=== PATIENT | male | born 1935 | race Caucasian/White ===

== ENCOUNTER → 2016-12-06 | Outpatient (REF) | payer MEDICARE, MEDICAID | LOC: M SFHCPLAZ 17:04 | PROVIDERS: ATTEND Dermatology | DX: L81.4 Other melanin hyperpigmentation (principal) ==

== ENCOUNTER → 2017-05-31 | Outpatient (REF) | payer MEDICARE, MEDICAID | LOC: M LAB REF 13:00 | PROVIDERS: ATTEND Internal Medicine | DX: M10.9 Gout, unspecified (principal) ==

== ENCOUNTER 2017-12-21 07:28 | Day surgery (SDC) | payer MEDICARE, MEDICAID ==
[~2017-12-21 07:28] MED LIST: BALANCED SALT IRRIGATION SOLUTION 500ML BAG (FOR OR EYE MACHINE) As Ordered; DUOVISC (0.50ML VISCOAT/0.55ML PROVISC) OPHTH KIT As Ordered; LIDOCAINE 0.75%/EPINEPHRINE 0.025% IN BSS 1ML SYR INTRACAMERAL (OR ONLY) As Ordered; POVIDONE-IODINE 5% OPHTH PREP SOL 30ML As Ordered
[2017-12-21] MEDS ORDERED: LIDOCAINE 1% MDV 20ML VIAL SQ (07:45)
[2017-12-21] MEDS: PROPARACAINE 0.5% OPHTH SOL 15ML OS (08:00)
[2017-12-21] MEDS: PHENYLEPHRINE 2.5% OPHTH SOL 2ML OS (08:05)
[2017-12-21] MEDS: TROPICAMIDE 1% OPHTH SOLN 2ML OS (08:10)
[2017-12-21] MEDS: OFLOXACIN 0.3 % (OCUFLOX) OPTH SOL 5ML OS (08:15)
[2017-12-21 08:36] LABS: BEDSIDE GLUCOSE 116 MG/DL (83-110)
[2017-12-21] MEDS ORDERED: fentaNYL 100 MCG/2 ML INJECTION (J3010) As Ordered (09:00)
[2017-12-21] MEDS ORDERED: MIDAZOLAM INJ 2 MG/2 ML VIAL (J2250) As Ordered (09:00)
[2017-12-21] MEDS ORDERED: ONDANSETRON 4MG/2ML VIAL (J2405) IV (10:00)
== END 2017-12-21 10:33 | disposition home or self-care (01) ==
LOC: M SDC 07:28
DX: H25.12 Age-related nuclear cataract, left eye (principal); H57.03 Miosis; R94.31 Abnormal electrocardiogram [ECG] [EKG]; I48.0 Paroxysmal atrial fibrillation; E78.5 Hyperlipidemia, unspecified; I51.7 Cardiomegaly; E11.9 Type 2 diabetes mellitus without complications; M10.9 Gout, unspecified; K21.9 Gastro-esophageal reflux disease without esophagitis; Z88.0 Allergy status to penicillin; Z79.899 Other long term (current) drug therapy; Z79.01 Long term (current) use of anticoagulants; Z87.891 Personal history of nicotine dependence
CPT/HCPCS: 66982

== ENCOUNTER 2017-12-28 09:29 | Day surgery (SDC) | payer MEDICARE, MEDICAID ==
[2017-12-28] MEDS: CEFUROXIME 1MG/0.1ML INTRACAMERAL INJ As Ordered (06:50)
[2017-12-28] MEDS: PROPARACAINE 0.5% OPHTH SOL 15ML OD (09:55)
[2017-12-28] MEDS: OFLOXACIN 0.3 % (OCUFLOX) OPTH SOL 5ML OD (09:55)
[2017-12-28] MEDS: TROPICAMIDE 1% OPHTH SOLN 2ML OD (10:00)
[2017-12-28] MEDS: PHENYLEPHRINE 2.5% OPHTH SOL 2ML OD (10:00)
[2017-12-28 10:15] LABS: BEDSIDE GLUCOSE 98 MG/DL (83-110)
[2017-12-28] MEDS ORDERED: fentaNYL 100 MCG/2 ML INJECTION (J3010) As Ordered (10:35)
[2017-12-28] MEDS ORDERED: MIDAZOLAM INJ 2 MG/2 ML VIAL (J2250) As Ordered (10:35)
[2017-12-28] MEDS: POVIDONE-IODINE 5% OPHTH PREP SOL 30ML As Ordered (11:00)
[2017-12-28] MEDS: BALANCED SALT IRRIGATION SOLUTION 500ML BAG (FOR OR EYE MACHINE) As Ordered (11:05)
[2017-12-28] MEDS: DUOVISC (0.50ML VISCOAT/0.55ML PROVISC) OPHTH KIT As Ordered (11:05)
[2017-12-28] MEDS: LIDOCAINE 0.75%/EPINEPHRINE 0.025% IN BSS 1ML SYR INTRACAMERAL (OR ONLY) As Ordered (11:06)
== END 2017-12-28 11:55 | disposition home or self-care (01) ==
LOC: M SDC 09:29
DX: H25.11 Age-related nuclear cataract, right eye (principal); H57.03 Miosis; E78.00 Pure hypercholesterolemia, unspecified; E78.5 Hyperlipidemia, unspecified; R94.31 Abnormal electrocardiogram [ECG] [EKG]; I48.0 Paroxysmal atrial fibrillation; E11.9 Type 2 diabetes mellitus without complications; M10.9 Gout, unspecified; K21.9 Gastro-esophageal reflux disease without esophagitis; I51.7 Cardiomegaly; Z88.0 Allergy status to penicillin; Z79.899 Other long term (current) drug therapy; Z79.01 Long term (current) use of anticoagulants
CPT/HCPCS: 66982

== ENCOUNTER → 2018-06-06 | Outpatient (REF) | payer MEDICARE, MEDICAID ==
[2018-06-07 14:04] LABS: FOLATE 21.2 NG/ML
== END ==
LOC: M LAB REF 12:55
DX: G60.9 Hereditary and idiopathic neuropathy, unspecified (principal)
CPT/HCPCS: 82746

== ENCOUNTER → 2020-06-26 | Outpatient (REF) | payer MEDICARE, MEDICAID ==
[~2020-06-26] MED LIST changes: -BALANCED SALT IRRIGATION SOLUTION 500ML BAG (FOR OR EYE MACHINE) As Ordered; +COLC1CAP PO; +DILT180C28 PO; -DUOVISC (0.50ML VISCOAT/0.55ML PROVISC) OPHTH KIT As Ordered; -LIDOCAINE 0.75%/EPINEPHRINE 0.025% IN BSS 1ML SYR INTRACAMERAL (OR ONLY) As Ordered; +MULT1TAB28 PO; -POVIDONE-IODINE 5% OPHTH PREP SOL 30ML As Ordered; +PROP225C13 PO; +SIMV10TA21 PO; +TYLE325C PO; +WARF-23 PO
== END ==
LOC: M LAB REF 09:13
PROVIDERS: ATTEND Dermatology
DX: C44.41 Basal cell carcinoma of skin of scalp and neck (principal); L90.5 Scar conditions and fibrosis of skin; L57.8 Other skin changes due to chronic exposure to nonionizing radiation